=== PATIENT | female | born 2000 | race Caucasian/White ===

== ENCOUNTER 2020-07-08 12:13 | Emergency (ER) | payer OTHER, SELFPAY ==
[~2020-07-08] VITALS: Ht 160 cm; Wt 81.6 kg
[2020-07-08 12:26] VITALS: BP 109/71
--- NOTE | 2020-07-08 12:52 | NUR ---
PT AMBULATED TO BED 9 AND PLACED IN COVID PRECAUTIONS.
--- NOTE | 2020-07-08 12:53 | NUR ---
20/F PRESENTS TO ED WITH COMPLAINTS OF COUGH, HEADACHE X 4-5 DAYS. PT DENIES ANY PAIN AT THIS TIME. PT REPORTS HAVING A DECREASE IN TASTE. PT SHOWS NO SIGNS OF RESPIRAORY DISTRESS. RR EVEN AND UNLABORED. PT DENIES SOB. AOX4, SPEAKING IN FULL CLEAR SENTENCES.
--- NOTE | 2020-07-08 13:02 | NUR ---
Dr. Valenzuela is evaluating the patient at bedside.
--- NOTE | 2020-07-08 13:10 | NUR ---
NOVEL SWAB COLLECTED AND SENT TO LAB.
--- NOTE | 2020-07-08 14:30 | NUR ---
Patient discharged with v/s stable. Written and verbal after care instructions given and explained. Patient verbalized understanding. Ambulatory with steady gait. All questions addressed prior to discharge. Advised to follow up with PMD.
[2020-07-08 14:31] VITALS: BP 109/71
== END 2020-07-08 14:30 | disposition home or self-care (01) ==
LOC: MED 12:13
DX: U07.1 COVID-19 (principal); M79.10 Myalgia, unspecified site
CPT/HCPCS: 99283; U0003